=== PATIENT | male | born 1990 | race Caucasian/White ===

== ENCOUNTER 2017-06-14 16:47 | Emergency (ER) | payer OTHER ==
[2017-06-14] MEDS ORDERED: IBUP800T19 PO (17:20)
--- NOTE | 2017-06-14 17:20 | PHYS DOC ---
Past History Past Medical History: Asthma Past Surgical History: No Surgical History Alcohol Use: Occasionally Drug Use: None Adult General Chief Complaint Chief Complaint: SHOULDER INJURY [facility] HPI 26-year-old left-handed male patient with Right shoulder injury and taking physical therapy and feeding for MRI of his shoulder. Patient states he tried to stand up and put his weight on his right hand yesterday and felt a pop in his joint like his joint is out of the psychiatric but was able to move his arms with pain. Patient states he laid down and did joint pain to the suction and he was able to move his arm completely. Patient complaining of pain in his right shoulder and upper chest wall area since yesterday that getting worse with movement. Patient did not take any pain medication. Patient denies focal neuro deficit and other injuries. Review of Systems Review of Systems Constitutional: Denies fever or chills [] Eyes: Denies change in visual acuity, redness, or eye pain [] HENT: Denies nasal congestion or sore throat [] Respiratory: Denies cough or shortness of breath [] Cardiovascular: No additional information not addressed in HPI [] GI: Denies abdominal pain, nausea, vomiting, bloody stools or diarrhea [] : Denies dysuria or hematuria [] Musculoskeletal: Denies back pain, reports joint pain [] Integument: Denies rash or skin lesions [] Neurologic: Denies headache, focal weakness or sensory changes [] Endocrine: Denies polyuria or polydipsia [] All other systems were reviewed and found to be within normal limits, except as documented in this note. Allergies Allergies Allergies Coded Allergies Type Severity Reaction Last Updated Verified Sulfa (Sulfonamide Antibiotics) Allergy Unknown 06/14/17 Yes morphine Allergy Unknown 06/14/17 Yes Physical Exam Physical Exam Constitutional: Well developed, well nourished, no acute distress, non-toxic appearance. [] HENT: Normocephalic, atraumatic, bilateral external ears normal, oropharynx moist, no oral exudates, nose normal. [] Eyes: PERRLA, EOMI, conjunctiva normal, no discharge. [] Neck: Normal range of motion, no tenderness, supple, no stridor. [] Cardiovascular:Heart rate regular rhythm, no murmur [] Lungs & Thorax: Bilateral breath sounds clear to auscultation [] Extremities: No tenderness, no cyanosis, no clubbing, ROM intact, no edema, right shoulder without deformity or tenderness, normal range of motion, no neurovascular deficit. [] Neurologic: Alert and oriented X 3, normal motor function, normal sensory function, no focal deficits noted. [] Psychologic: Affect normal, judgement normal, mood normal. [] Current Patient Data Vital Signs Vital Signs Date Time Temp Pulse Resp B/P (MAP) Pulse Ox O2 Delivery O2 Flow Rate FiO2 06/14/17 16:50 98.3 74 18 98 Room Air EKG EKG [] Radiology/Procedures Radiology/Procedures [] Course & Med Decision Making Course & Med Decision Making Evaluation of patient in ER showed 26-year-old male patient with history of previous right shoulder injury and feeling a pop right shoulder yesterday and continued to have pain in his shoulder since yesterday. Patient had unremarkable physical exam. X-ray of shoulder was not ordered because of no sign of bone injury. Patient instructed to follow with his primary care physician and follow-up for MRI of the shoulder. Dragon Disclaimer Dragon Disclaimer This electronic medical record was generated, in whole or in part, using a voice recognition dictation system. Departure Departure: Impression: Primary Impression: Sprain of shoulder, right Disposition: HOME, SELF-CARE (At 1717) Condition: STABLE Referrals: BLANQUITA MAR (PCP) Patient Instructions: Shoulder Sprain Additional Instructions: Apply ice and your shoulder Follow-up with your primary care physician in 2 or 3 days Scripts Ibuprofen (IBUPROFEN) 800 Mg Tablet 1 TAB PO TID, #30 TAB Prov: RIVER ANAND MD 06/14/17 RIVER ANAND MD Jun 14, 2017 17:20
[2017-06-14 17:28] VITALS: BP 145/73
== END 2017-06-14 17:28 | disposition home or self-care (01) ==
LOC: ER 16:47
DX: S43.401A Unspecified sprain of right shoulder joint, initial encounter (principal); R07.89 Other chest pain; J45.909 Unspecified asthma, uncomplicated; Z88.2 Allergy status to sulfonamides; Z88.5 Allergy status to narcotic agent; X50.9XXA Other and unspecified overexertion or strenuous movements or postures, initial encounter; Y93.89 Activity, other specified; Y99.8 Other external cause status; Y92.89 Other specified places as the place of occurrence of the external cause
CPT/HCPCS: 99282